=== PATIENT | female | born 1945 | race African-American/Black ===

== ENCOUNTER 2017-02-02 08:36 | Inpatient (IN) | payer MEDICARE, OTHER ==
[~2017-02-02 08:36] MED LIST: ALLOPURINOL100 MG PO; ALPRAZOLAM0.5 MG PO; ASPIRIN E.C. 8181 MG PO; ATENOLOL25 MG PO; ATIVAN; BLOOD PRESSURE MED PO; BYSTOLIC5 MG PO; CARDIZEM 60MG T60 MG PO; CARDIZEM 90MG T90 MG PO; CENTRUM SILVER1 CTB PO; CENTRUM SILVER1 TA1 PO; COUMADIN 5MG5 MG/TAB PO; DYAZIDE 25 MG-31 CAP PO; HAIR SKIN AND NAILS PO; HCTZ 25MG TAB25 MG PO; LASIX 20MG TABL20 MG; LASIX 20MG TABL20 MG PO; LEVOTHROID0.088 MG PO; LEVOTHYROXINE PO; LISINOPRIL5 MG PO; MAXZIDE; OXYCODONE5 MG PO; PERCOCET 325 MG1 TA2 PO; PRINIVIL10 MG PO; SIMVISTATIN; TOPROL XL 25MG25 MG PO; TRIAMTERENE/HCT1 TAB PO; ULTRAM 50MG TAB50 MG; ULTRAM 50MG TAB50 MG PO; XANAX .25M0.25 MG/TA PO; ZESTRIL 5MG5 MG PO; ZOCOR; ZOCOR 40MG40 MG PO; ZYLOPRIM 100MG100 MG PO
[2017-04-05 08:42] LABS: PH 5 (5-8); SQUAMOUS EPITHELIAL None Seen /hpf; URINE APPEARANCE Clear; URINE BACTERIA Rare /hpf; URINE BILIRUBIN Negative (NEGATIVE); URINE BLOOD Negative (NEGATIVE); URINE COLOR Yellow; URINE GLUCOSE Negative (NEGATIVE); URINE KETONE Negative (NEGATIVE); URINE RBC 0-2 /hpf; URINE UROBILINOGEN Negative (NEGATIVE)
[2017-04-05] MEDS ORDERED: COZAAR100 MG PO (13:52)
[2017-04-05] MEDS ORDERED: LASIX 20MG TABL20 MG PO ×2 (13:54)
[2017-04-05] MEDS ORDERED: LASIX 40MG TABL40 MG PO (13:55)
[2017-04-05] MEDS ORDERED: FOLIC ACID 40400 MCG PO (14:06)
[2017-04-05] MEDS ORDERED: VITAMIN C500 MG PO (14:06)
== END 2017-04-05 09:45 | disposition home or self-care (01) | DRG 554 ==
LOC: JCC 04-05 07:30 → SURG 04-05 08:03 → JCC 04-05 10:20
PROVIDERS: Orthopaedic Surgery
DX: M17.12 Unilateral primary osteoarthritis, left knee (principal); N39.0 Urinary tract infection, site not specified; Z53.09 Procedure and treatment not carried out because of other contraindication; I10 Essential (primary) hypertension
CPT/HCPCS: J7120

== ENCOUNTER 2017-04-12 15:47 | Inpatient (IN) | payer MEDICARE, OTHER ==
[~2017-04-12] VITALS: Ht 157.5 cm; Wt 146.3 kg
[~2017-04-12 15:47] MED LIST changes: +COZAAR100 MG PO; +FOLIC ACID 40400 MCG PO; +LASIX 40MG TABL40 MG PO; +VITAMIN C500 MG PO
[2017-05-03] VITALS (12 sets, daily range): BP systolic 137–184; BP diastolic 59–88; PULSE 63–85; TEMP 65–99.4
[2017-05-03 08:15] LABS: PROTHROMBIN TIME 11.4 SECONDS (9.7-12.8)
[2017-05-04] VITALS (7 sets, daily range): BP systolic 101–169; BP diastolic 33–74; PULSE 65–96; TEMP 98.3–99.3
[2017-05-04 06:15] LABS: HEMATOCRIT 39.1 % (37.0-47.0); HEMOGLOBIN 12.5 g/dl (12.5-16.0)
[2017-05-04 06:21] LABS: INR 1.1 (0.8-3.0); PROTHROMBIN TIME 12.3 SECONDS (9.7-12.8)
[2017-05-05 05:27] VITALS: BP 132/54; PULSE 64; TEMP 98.5
[2017-05-05 06:15] LABS: HEMATOCRIT 37.5 % (37.0-47.0)
[2017-05-05 06:16] LABS: HEMOGLOBIN 11.9 g/dl (12.5-16.0)
[2017-05-05 06:22] LABS: INR 1.1 (0.8-3.0); PROTHROMBIN TIME 12.1 SECONDS (9.7-12.8)
[2017-05-05 07:18] VITALS: BP 130/54; PULSE 66; TEMP 98.5
[2017-05-05 12:37] VITALS: BP 129/66; PULSE 76; TEMP 98.6
[2017-05-05 16:01] VITALS: BP 126/48; PULSE 64; TEMP 98
[2017-05-05 19:34] VITALS: BP 127/49; PULSE 65; TEMP 98.5
[2017-05-05 21:34] LABS: BASO % 0.1 % (0.0-2.0); GRAN # 13.1 (1.4-6.5); GRAN % 81.9 % (42.2-75.2); LYMPH # 1.7 (1.2-3.4); LYMPH % 10.8 % (20.0-51.0); MEAN CELL VOLUME 91 fl (80.0-100.0); MEAN CORPUSCULAR HGB CONC 32 g/dl (33.0-37.0); MEAN PLATELET VOLUME 11.1 fl (7.4-10.4); MONO # 1.1 (0.1-0.6); MONO % 6.6 % (1.7-9.3); PLATELET COUNT 197 K/mm3 (130-400); RED BLOOD COUNT 3.98 M/mm3 (4.10-5.30); REDCELL DISTRIBUTION WIDTH-CV 13.4 % (11.5-14.5)
[2017-05-05 21:36] LABS: HEMATOCRIT 36.2 % (37.0-47.0); HEMOGLOBIN 11.6 g/dl (12.5-16.0); MEAN CORPUSCULAR HEMOGLOBIN 29 pg (27.0-31.0)
[2017-05-05 21:39] LABS: CREATININE, serum 1.03 mg/dL (0.52-1.25)
[2017-05-06] VITALS (8 sets, daily range): BP systolic 112–138; BP diastolic 47–90; PULSE 49–92; TEMP 97.9–98.5
[2017-05-06 07:07] LABS: HEMATOCRIT 36.1 % (37.0-47.0); HEMOGLOBIN 11.3 g/dl (12.5-16.0)
[2017-05-06 07:08] LABS: INR 1.3 (0.8-3.0)
[2017-05-06 11:37] LABS: BASO % 0.1 % (0.0-2.0); GRAN # 11.2 (1.4-6.5); GRAN % 75.1 % (42.2-75.2); HEMOGLOBIN 11.5 g/dl (12.5-16.0); LYMPH # 2.4 (1.2-3.4); LYMPH % 16.3 % (20.0-51.0); MEAN CELL VOLUME 93 fl (80.0-100.0); MEAN CORPUSCULAR HEMOGLOBIN 29 pg (27.0-31.0); MEAN CORPUSCULAR HGB CONC 31 g/dl (33.0-37.0); MEAN PLATELET VOLUME 12.7 fl (7.4-10.4); MONO # 1.2 (0.1-0.6); MONO % 7.8 % (1.7-9.3); PLATELET COUNT 217 K/mm3 (130-400); RED BLOOD COUNT 3.99 M/mm3 (4.10-5.30); REDCELL DISTRIBUTION WIDTH-CV 13.7 % (11.5-14.5); WHITE BLOOD COUNT 14.9 K/mm3 (4.8-10.8)
[2017-05-06 12:55] LABS: PH 6 (5-8); URINE APPEARANCE Clear; URINE BACTERIA None Seen /hpf; URINE BILIRUBIN Negative (NEGATIVE); URINE BLOOD Negative (NEGATIVE); URINE COLOR Straw; URINE GLUCOSE Negative (NEGATIVE); URINE KETONE Negative (NEGATIVE); URINE RBC 0-2 /hpf; URINE UROBILINOGEN Negative (NEGATIVE)
[2017-05-07] VITALS (7 sets, daily range): BP systolic 120–166; BP diastolic 50–85; PULSE 58–78; TEMP 97.4–99.6
[2017-05-07 06:38] LABS: INR 1.4 (0.8-3.0); PROTHROMBIN TIME 16.2 SECONDS (9.7-12.8)
[2017-05-08] VITALS (7 sets, daily range): BP systolic 130–160; BP diastolic 45–63; PULSE 59–88; TEMP 98.1–99.6
[2017-05-08 07:33] LABS: INR 1.7 (0.8-3.0); PROTHROMBIN TIME 18.9 SECONDS (9.7-12.8)
[2017-05-08 09:38] LABS: CALCIUM 9.1 mg/dL (8.4-10.2); CREATININE, serum 1.05 mg/dL (0.52-1.25); MAGNESIUM 1.7 mg/dL (1.6-2.3); POTASSIUM 4.4 mmol/L (3.4-5.0)
[2017-05-09 00:34] VITALS: BP 147/53; PULSE 65; TEMP 99.2
[2017-05-09 04:10] VITALS: BP 148/65; PULSE 69; PULSE 73; TEMP 98.3
[2017-05-09 07:28] LABS: INR 1.8 (0.8-3.0); PROTHROMBIN TIME 20.2 SECONDS (9.7-12.8)
[2017-05-09 07:43] VITALS: BP 160/54; PULSE 79; TEMP 98.2
[2017-05-09 12:33] VITALS: BP 165/50; PULSE 70; TEMP 97.7
[2017-05-09 15:06] VITALS: BP 165/50; PULSE 70; TEMP 97.7
[2017-05-09] MEDS ORDERED: ZEBETA 5MG5 MG PO (15:51)
[2017-05-09] MEDS ORDERED: MULTAQ400 MG PO (15:51)
[2017-05-09] MEDS ORDERED: BYSTOLIC5 MG PO (17:31)
== END 2017-05-09 16:45 | DRG 470 ==
LOC: JCC 05-03 07:25
PROVIDERS: Internal Medicine; Nurse Practitioner Family; Orthopaedic Surgery
PROC: 0SRD0J9 Replacement of Left Knee Joint with Synthetic Substitute, Cemented, Open Approach (ICD-10-PCS; principal; 2017-05-03 12:00)
DX: M17.12 Unilateral primary osteoarthritis, left knee (principal); Z68.43 Body mass index [BMI] 50.0-59.9, adult; I42.0 Dilated cardiomyopathy; K58.9 Irritable bowel syndrome, unspecified; I12.9 Hypertensive chronic kidney disease with stage 1 through stage 4 chronic kidney disease, or unspecified chronic kidney disease; N18.3 Chronic kidney disease, stage 3 (moderate); I48.0 Paroxysmal atrial fibrillation; Z79.01 Long term (current) use of anticoagulants; E66.01 Morbid (severe) obesity due to excess calories
CPT/HCPCS: 99223; 99232-AI; A9284; C1713; C1776; J0690; J1100; J1170; J1560; J2250; J2270; J2405; J2704; J3010; J7070; J7120

== ENCOUNTER → 2018-12-05 | Outpatient (CLI) | payer MEDICARE, OTHER ==
[~2018-12-05] MED LIST changes: +MULTAQ400 MG PO; +ZEBETA 5MG5 MG PO
== END ==
LOC: COL.PUL 09:52
DX: I51.7 Cardiomegaly (principal); I34.0 Nonrheumatic mitral (valve) insufficiency

== ENCOUNTER 2019-04-13 13:37 | Emergency (ER) | payer MEDICARE, OTHER ==
[~2019-04-13] VITALS: Ht 160 cm; Wt 153.8 kg
[2019-04-13 14:43] LABS: BASO % 0.3 % (0.0-2.0); EOS # 0.2 (0.0-0.7); EOS % 2.8 % (0-4.0); GRAN # 4.4 (1.4-6.5); HEMATOCRIT 43.5 % (37.0-47.0); HEMOGLOBIN 13.7 g/dl (12.5-16.0); LYMPH # 2.5 (1.2-3.4); LYMPH % 32.8 % (20.0-51.0); MEAN CELL VOLUME 95 fl (80.0-100.0); MEAN CORPUSCULAR HEMOGLOBIN 30 pg (27.0-31.0); MEAN CORPUSCULAR HGB CONC 32 g/dl (33.0-37.0); MEAN PLATELET VOLUME 11.4 fl (7.4-10.4); MONO # 0.5 (0.1-0.6); PLATELET COUNT 214 K/mm3 (130-400); RED BLOOD COUNT 4.59 M/mm3 (4.10-5.30); REDCELL DISTRIBUTION WIDTH-CV 13.4 % (11.5-14.5)
[2019-04-13 14:54] LABS: ALBUMIN 3.5 gm/dL (3.5-5.0); BILIRUBIN,TOTAL 0.3 mg/dL (0.0-1.0); CALCIUM 9.4 mg/dL (8.4-10.2); CREATININE, serum 1.61 (0.52-1.25); POTASSIUM 4.4 mmol/L (3.4-5.0); TOTAL PROTEIN 6.9 gm/dL (6.4-8.2)
[2019-04-13 15:12] LABS: TROPONIN-I 0.093 ng/mL (0.000-0.035)
[2019-04-13 15:38] LABS: INR 4.3 (0.8-3.0)
[2019-04-13 15:40] LABS: PROTHROMBIN TIME 52.6 SECONDS (9.7-12.8)
[2019-04-13] MEDS ORDERED: CORDARONE200 MG/TAB PO (15:46)
[2019-04-13] MEDS ORDERED: DEMADEX 20MG20 M1 (15:46)
[2019-04-13] MEDS ORDERED: ALDACTONE 25MG25 M1 PO (15:47)
[2019-04-13] MEDS ORDERED: NORVASC2.5 MG PO (15:48)
[2019-04-13] MEDS ORDERED: LOPRESSOR 550 MG/TAB PO (15:49)
[2019-04-13 17:10] VITALS: BP 123/53; PULSE 31; TEMP 98.6
== END 2019-04-13 17:10 | disposition short-term general hospital (02) ==
LOC: COL.ER 13:37
PROVIDERS: Emergency Medicine
DX: I21.4 Non-ST elevation (NSTEMI) myocardial infarction (principal); I48.0 Paroxysmal atrial fibrillation; E03.9 Hypothyroidism, unspecified; I13.0 Hypertensive heart and chronic kidney disease with heart failure and stage 1 through stage 4 chronic kidney disease, or unspecified chronic kidney disease; N18.9 Chronic kidney disease, unspecified; I50.9 Heart failure, unspecified; M10.9 Gout, unspecified; Z79.01 Long term (current) use of anticoagulants; Z95.5 Presence of coronary angioplasty implant and graft
CPT/HCPCS: J0610; J2060

== ENCOUNTER 2019-10-14 13:47 | Outpatient (RCR) | payer OTHER ==
[~2019-10-14 13:47] MED LIST changes: +ALDACTONE 25MG25 M1 PO; +CALCIUM CITRAT950 MG PO; +CEPHALEXIN500 M1 PO; +CORDARONE200 MG/TAB PO; +DEMADEX 20MG20 M1 PO; +LEVOXYL0.125 MG PO; +LOPRESSOR 550 MG/TAB PO; +NORVASC2.5 MG PO
== END 2020-01-12 | disposition home or self-care (01) ==
LOC: WSOH
DX: M79.601 Pain in right arm (principal); E78.00 Pure hypercholesterolemia, unspecified; I10 Essential (primary) hypertension; E03.9 Hypothyroidism, unspecified; I48.91 Unspecified atrial fibrillation; F41.9 Anxiety disorder, unspecified; R60.9 Edema, unspecified; M10.9 Gout, unspecified; Z96.653 Presence of artificial knee joint, bilateral; Z95.0 Presence of cardiac pacemaker

== ENCOUNTER 2019-11-08 00:52 | Emergency (ER) | payer MEDICARE, OTHER ==
[~2019-11-08] VITALS: Ht 160 cm; Wt 141.4 kg
[2019-11-08 01:00] VITALS: BP 151/67; TEMP 97.7
[2019-11-08 02:20] VITALS: PULSE 61
== END 2019-11-08 02:20 | disposition home or self-care (01) ==
LOC: COL.ER 00:52
DX: M26.622 Arthralgia of left temporomandibular joint (principal); I48.91 Unspecified atrial fibrillation; I11.0 Hypertensive heart disease with heart failure; I50.9 Heart failure, unspecified; E78.5 Hyperlipidemia, unspecified; Z88.2 Allergy status to sulfonamides; Z79.01 Long term (current) use of anticoagulants